=== PATIENT | female | born 1945 | race Caucasian/White ===

== ENCOUNTER 2017-08-18 15:25 | Emergency (ER) | payer OTHER ==
[~2017-08-18] VITALS: Ht 162.6 cm; Wt 95.9 kg
[2017-08-18 15:29] VITALS: TEMP 97.5
[2017-08-18] MEDS ORDERED: COREG 6.256.25 MG/TA PO (16:07)
[2017-08-18] MEDS ORDERED: PRINIVIL5 MG PO (16:08)
[2017-08-18] MEDS ORDERED: APRESOLINE50 MG PO (16:08)
[2017-08-18] MEDS ORDERED: IMDUR 30MG30 MG/TAB PO (16:08)
[2017-08-18] MEDS ORDERED: GLUCOTROL 5M5 MG/TAB PO (16:09)
[2017-08-18] MEDS ORDERED: ALDACTONE 25MG25 M1 PO (16:09)
[2017-08-18] MEDS ORDERED: PRILOTC (16:09)
[2017-08-18] MEDS ORDERED: CYMBALTA 30MG30 MG PO (16:09)
[2017-08-18] MEDS ORDERED: LYRICA 100MG C100 M1 PO ×2 (16:10→18:30)
[2017-08-18] MEDS ORDERED: PERCOCET 325 MG1 TAB PO (16:10)
[2017-08-18] MEDS ORDERED: DITROPAN 5MG TAB5 MG PO (16:10)
[2017-08-18 16:13] LABS: BASO # 0.1 (0.0-0.2); EOS # 0.1 (0.0-0.7); EOS % 1.7 % (0-4.0); GRAN # 4.3 (1.4-6.5); GRAN % 64.6 % (42.2-75.2); HEMATOCRIT 40.1 % (37.0-47.0); HEMOGLOBIN 12.4 g/dl (12.5-16.0); LYMPH # 1.7 (1.2-3.4); LYMPH % 25.2 % (20.0-51.0); MEAN CELL VOLUME 88 fl (80.0-100.0); MEAN CORPUSCULAR HEMOGLOBIN 27 pg (27.0-31.0); MEAN CORPUSCULAR HGB CONC 31 g/dl (33.0-37.0); MEAN PLATELET VOLUME 12.6 fl (7.4-10.4); MONO # 0.4 (0.1-0.6); MONO % 6.2 % (1.7-9.3); PLATELET COUNT 225 K/mm3 (130-400); RED BLOOD COUNT 4.54 M/mm3 (4.10-5.30); REDCELL DISTRIBUTION WIDTH-CV 15.9 % (11.5-14.5)
[2017-08-18 16:25] LABS: ALANINE AMINOTRANSFERASE 97 U/L (9-52); ALBUMIN 3.7 gm/dL (3.5-5.0); ALKALINE PHOSPHATASE 124 U/L (50-136); ANION GAP 12 mmol/L (7-16); AST,SGOT 42 U/L (15-37); BILIRUBIN,TOTAL 0.9 mg/dL (0.0-1.0); BLOOD UREA NITROGEN 27 mg/dL (7-17); CALCIUM 9.6 mg/dL (8.4-10.2); CARBON DIOXIDE 21 mmol/L (22-30); CHLORIDE 102 mmol/L (98-107); CREATININE, serum 1.35 mg/dL (0.52-1.25); GLUCOSE 155 mg/dL (74-106); SODIUM 135 mmol/L (137-145); TOTAL PROTEIN 7.3 gm/dL (6.4-8.2)
[2017-08-18 16:31] LABS: LIPASE < 10 U/L (23-300)
[2017-08-18 17:25] LABS: COLLECTION METHOD CLEAN CATCH
[2017-08-18 17:34] LABS: MUCOUS Present /lpf; PH 6 (5-8); URINE APPEARANCE Clear; URINE BACTERIA Rare /hpf; URINE BILIRUBIN Negative (NEGATIVE); URINE BLOOD Negative (NEGATIVE); URINE COLOR Yellow; URINE GLUCOSE Negative (NEGATIVE); URINE KETONE Negative (NEGATIVE); URINE LEUKOCYTE ESTERASE Trace (NEGATIVE); URINE NITRATE Negative (NEGATIVE); URINE PROTEIN(semi-quant) Negative (NEGATIVE); URINE RBC 0-2 /hpf; URINE UROBILINOGEN >=4.0 mg/dL (NEGATIVE)
[2017-08-18] MEDS ORDERED: ZYLOPRIM 300MG300 MG PO ×2 (18:15→18:30)
[2017-08-18] MEDS ORDERED: ZOFRAN ODT4 MG PO (18:26)
[2017-08-18 18:47] VITALS: BP 131/72; PULSE 62
== END 2017-08-18 18:47 | disposition home or self-care (01) ==
LOC: COL.ER 15:25
PROVIDERS: Emergency Medicine
DX: R11.10 Vomiting, unspecified (principal); R53.1 Weakness; E11.9 Type 2 diabetes mellitus without complications; I10 Essential (primary) hypertension; I48.91 Unspecified atrial fibrillation; Z90.710 Acquired absence of both cervix and uterus; Z90.49 Acquired absence of other specified parts of digestive tract; Z98.890 Other specified postprocedural states
CPT/HCPCS: J2405; J7030